=== PATIENT | male | born 1980 | race Hispanic/Latino ===

== ENCOUNTER 2022-03-27 01:36 | Emergency (ER) | payer OTHER ==
[~2022-03-27] VITALS: Ht 165.1 cm; Wt 97.1 kg
[2022-03-27] MEDS ORDERED: TERB30CR8 TP (04:32)
[2022-03-27 04:34] VITALS: BP 136/77
== END 2022-03-27 04:38 | disposition home or self-care (01) ==
LOC: EDH 01:36
DX: B37.42 Candidal balanitis (principal)
CPT/HCPCS: 82948